=== PATIENT | male | born 1990 | race American Indian/Alaskan Native ===

== ENCOUNTER 2018-06-16 16:06 | Emergency (ER) | payer MEDICAID, OTHER ==
[2018-06-16 16:07] VITALS: BMI 27.3
[2018-06-16 16:30] VITALS: TEMP 98.4; O2SAT 98
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
[2018-06-16 17:21] VITALS: BP 118/78; PULSE 68; RESP 18
== END 2018-06-16 17:21 | disposition home or self-care (01) ==
LOC: ED 16:06
DX: R11.10 Vomiting, unspecified (principal); F17.210 Nicotine dependence, cigarettes, uncomplicated